=== PATIENT | female | born 1995 | race American Indian/Alaskan Native ===

== ENCOUNTER 2022-02-08 04:47 | Emergency (ER) | payer SELFPAY ==
[2022-02-08] MEDS ORDERED: ONDANSETRON 4 MG ODT TAB PO ONE (10:45)
--- NOTE | 2022-02-08 10:45 | Emergency Department Report ---
Vomiting/Diarrhea - HPI Chief Complaint: Nausea/Vomiting/Diarrhea Stated Complaint: ABD PAIN Duration: 2 Days Severity: moderate Nausea/Vomiting Severity: Mild Diarrhea Severity: Mild Pain Location: Generalized Pain Severity: Mild Symptoms: Yes Watery Diarrhea, Yes Able to Tolerate Fluids, Yes Recent Unusual Foods, No Bloody diarrhea, No Fever, No Recent Untreated Water, No Recent use of Antibiotics, No Family w/ Similar Symptoms, No Contacts w/ Similar Symptoms, No Rash, No Hematuria, No Recent URI Symptoms Other History: This is a 26-year-old -[place] female who presents to the emergency room with nausea, vomiting, and diarrhea for 2 days. Patient states she ate some pizza and did not seek care presents. Patient reports cramping and bloating intensity into the lower abdomen with bowel movements. Patient states she is taken Pepto-Bismol with minimal change in symptoms. Patient states she is able to tolerate fluids and food but it is very uncomfortable to lower abdomen. Denies hematochezia, hemataemesis, weakness, urinary changes, fever, or chills. ED Review of Systems ROS: Stated complaint: ABD PAIN Other details as noted in HPI Constitutional: denies: chills, fever ENT: denies: ear pain, throat pain Respiratory: denies: cough, shortness of breath, wheezing Cardiovascular: denies: chest pain, palpitations Gastrointestinal: abdominal pain, nausea, vomiting, diarrhea. denies: constipation, hematemesis, hematochezia Genitourinary: denies: urgency, dysuria, discharge Neurological: denies: headache, weakness, paresthesias Psychiatric: denies: anxiety, depression ED Past Medical Hx - Medications Home Medications: Home Medications Medication Instructions Recorded Confirmed Last Taken Type Dicyclomine [Bentyl] 10 mg PO QID PRN #12 capsule 02/08/22 Unknown Rx Ondansetron [Zofran Odt] 4 mg PO Q8HR #15 tab.rapdis 02/08/22 Unknown Rx Vomiting Diarrhea Exam - Exam General: Vital signs noted. No distress. Alert and acting appropriately. HEENT: Yes Moist Mucous Membranes, No Pharyngeal Erythema, No Pharyngeal Exudates, No Rhinorrhea, No Conjuctival Injection, No Frontal Tenderness, No Maxillary Tenderness Neck: No Adenopathy, No Rigidity Lungs: Yes Clear Lung Sounds, Yes Good Air Exchange, No Wheezes, No Stridor, No Cough, No Nasal Flaring, No Retractions, No Use of Accessory Muscles Heart exam: Regular: Yes, Murmur: No, Tachycardia: No Abdomen: Tenderness: Yes (RLQ, LLQ), Peritoneal Signs: No, Distention: No, Hyperactive Bowel sounds: No Skin exam: Rash: No, Edema: No, Normal turgor: Yes Neurologic: Alert and oriented, no deficits. Musculoskeletal: Unremarkable. ED Course Vital Signs 02/08/22 05:17 Temperature 98.1 F Pulse Rate 114 H Respiratory 18 Rate Blood Pressure 149/91 O2 Sat by Pulse 97 Oximetry Vital Signs 02/08/22 02/08/22 02/08/22 05:17 14:12 17:42 Temperature 98.1 F Pulse Rate 114 H 68 72 Respiratory 18 18 16 Rate Blood Pressure 149/91 Blood Pressure 135/75 124/68 [Left] O2 Sat by Pulse 97 100 100 Oximetry ED Medical Decision Making - Lab Data Result diagrams: 02/08/22 10:51 02/08/22 10:51 Lab Results 02/08/22 02/08/22 02/08/22 Range/Units 10:51 10:51 10:51 WBC 6.7 (4.5-11.0) K/mm3 RBC 6.61 H (3.65-5.03) M/mm3 Hgb 19.3 H (10.1-14.3) gm/dl Hct 56.6 H* (30.3-42.9) % MCV 86 (79-97) fl MCH 29 (28-32) pg MCHC 34 (30-34) % RDW 15.4 H (13.2-15.2) % Plt Count 239 (140-440) K/mm3 Lymph % (Auto) 12.1 L (13.4-35.0) % Glasscock % (Auto) 5.5 (0.0-7.3) % Eos % (Auto) 0.0 (0.0-4.3) % Baso % (Auto) 0.3 (0.0-1.8) % Lymph # (Auto) 0.8 L (1.2-5.4) K/mm3 Glasscock # (Auto) 0.4 (0.0-0.8) K/mm3 Eos # (Auto) 0.0 (0.0-0.4) K/mm3 Baso # (Auto) 0.0 (0.0-0.1) K/mm3 Seg Neutrophils % 82.1 H (40.0-70.0) % Seg Neutrophils # 5.5 (1.8-7.7) K/mm3 Sodium 134 L (137-145) mmol/L Potassium 4.8 (3.6-5.0) mmol/L Chloride 96.9 L (98-107) mmol/L Carbon Dioxide 25 (22-30) mmol/L Anion Gap 17 mmol/L BUN 21 H (7-17) mg/dL Creatinine 1.5 H (0.6-1.2) mg/dL Estimated GFR 51 ml/min BUN/Creatinine Ratio 14 % Glucose 124 H (65-100) mg/dL Calcium 9.9 (8.4-10.2) mg/dL Total Bilirubin 0.60 (0.1-1.2) mg/dL AST 30 (5-40) units/L ALT 27 (7-56) units/L Alkaline Phosphatase 139 H (35-129) units/L Total Protein 9.2 H (6.3-8.2) g/dL Albumin 5.9 H (3.9-5) g/dL Albumin/Globulin Ratio 1.8 % Lipase 15 (13-60) units/L HCG, Qual (Negative) Urine Color (Yellow) Urine Turbidity (Clear) Specific Neon (Man) (1.003-1.030) Ur Protein (Man) (Negative) mg/dL Ur Ketones (Man) (Negative) Urine Bilirubin (Man) (Negative) Urine WBC (Auto) (0.0-6.0) /HPF Urine RBC (Auto) (0.0-6.0) /HPF U Epithel Cells (Auto) (0-13.0) /HPF Urine RBC (Manual) (Negative) Hyaline Casts /LPF Waxy Casts /LPF Urine Mucus /HPF 02/08/22 02/08/22 Range/Units 14:33 Unknown WBC (4.5-11.0) K/mm3 RBC (3.65-5.03) M/mm3 Hgb (10.1-14.3) gm/dl Hct (30.3-42.9) % MCV (79-97) fl MCH (28-32) pg MCHC (30-34) % RDW (13.2-15.2) % Plt Count (140-440) K/mm3 Lymph % (Auto) (13.4-35.0) % Glasscock % (Auto) (0.0-7.3) % Eos % (Auto) (0.0-4.3) % Baso % (Auto) (0.0-1.8) % Lymph # (Auto) (1.2-5.4) K/mm3 Glasscock # (Auto) (0.0-0.8) K/mm3 Eos # (Auto) (0.0-0.4) K/mm3 Baso # (Auto) (0.0-0.1) K/mm3 Seg Neutrophils % (40.0-70.0) % Seg Neutrophils # (1.8-7.7) K/mm3 Sodium (137-145) mmol/L Potassium (3.6-5.0) mmol/L Chloride (98-107) mmol/L Carbon Dioxide (22-30) mmol/L Anion Gap mmol/L BUN (7-17) mg/dL Creatinine (0.6-1.2) mg/dL Estimated GFR ml/min BUN/Creatinine Ratio % Glucose (65-100) mg/dL Calcium (8.4-10.2) mg/dL Total Bilirubin (0.1-1.2) mg/dL AST (5-40) units/L ALT (7-56) units/L Alkaline Phosphatase (35-129) units/L Total Protein (6.3-8.2) g/dL Albumin (3.9-5) g/dL Albumin/Globulin Ratio % Lipase (13-60) units/L HCG, Qual Negative (Negative) Urine Color Yellow (Yellow) Urine Turbidity Clear (Clear) Specific Neon (Man) 1.030 (1.003-1.030) Ur Protein (Man) Negative (Negative) mg/dL Ur Ketones (Man) Negative (Negative) Urine Bilirubin (Man) Negative (Negative) Urine WBC (Auto) 4.0 (0.0-6.0) /HPF Urine RBC (Auto) 8.0 (0.0-6.0) /HPF U Epithel Cells (Auto) 12.0 (0-13.0) /HPF Urine RBC (Manual) Negative (Negative) Hyaline Casts 271 /LPF Waxy Casts 8 /LPF Urine Mucus 1+ /HPF - Radiology Data Radiology results: report reviewed [facility] [address] [place] [id number] Cat Scan Report Signed Patient: CARLOS HANNA MR#: [id number] : 1995 Acct:[id number] Age/Sex: 26 / F ADM Date: 02/08/22 Loc: ED Attending Dr: Ordering Physician: THOM AVILEZ Date of Service: 02/08/22 Procedure(s): CT abdomen pelvis w con Accession Number(s): [id number] cc: THOM AVILEZ CT abdomen pelvis w con INDICATION: RT lower quadrant tend 100ml of [id number] . COMPARISON: None TECHNIQUE: Abdominal and pelvic CT exam performed. All CT scans at this locati on are performed using CT dose reduction for ALARA by means of automated exposure control. FINDINGS: CT ABDOMEN and PELVIS: Lung Bases: No significant abnormality. Liver: No significant abnormality. Biliary: No significant abnormality. Spleen: No significant abnormality. Pancreas: No significant abnormality. Adrenals: No significant abnormality. Kidneys: No significant abnormality. Lymphatics: Mildly prominent mesenteric lymph nodes, most likely reactive. Vasculature: No significant abnormality. Bowel: There is mild small bowel wall thickening. Dilation of the main arterioles. There is mucosal hyperemia seen and the bowel which involves the terminal ileum. Normal appendix. Pelvis: No significant abnormality. Osseous Structures: No aggressive osseous lesion. Additional Findings: None IMPRESSION: 1. Findings of possible enteritis. Mucosal hyperemia seen within the terminal ileum which is nonspecific but Crohn's could be a consideration. Correlate clinically. . Signer Name: Kolton Farmer MD Signed: 02/08/2022 4:58 PM Workstation Name: [id number] Transcribed By: CS Dictated By: Kolton Farmer MD Electronically Authenticated By: Kolton Farmer MD Signed Date/Time: 02/08/221657 DD/ 53 TD/TT: - Medical Decision Making 26-year-old female patient presents with diffuse abdominal cramping, nausea, vomiting & diarrhea. Differential diagnoses includes possible acute gastroenteritis. Abdominal exam without peritoneal signs. Currently vomiting with evidence of dehydration. No evidence of surgical abdomen or other acute medical emergency including bowel obstruction, viscus perforation, vascular catastrophe, atypical appendicitis, acute cholecystitis at this time. Presentation not consistent with other acute, emergent causes of vomiting / diarrhea at this time. RLQ & LLQ tender on exam. Labs ordered consistent with dehydration. Cupportive care, IV rehydration 1L bolus IV, reassess. PO trial tolerated after [address] findings of possible enteritis. Mucosal hyperemia seen within the terminal ileum which is nonspecific but Crohn's could be a consideration. Start Zofran and Bentyl. Referral to senior officer for continued care. Referral to PCP for follow-up in 2 to 3 days. Given strict return instructions. Patient discharged home stable. Critical care attestation.: If time is entered above; I have spent that time in minutes in the direct care of this critically ill patient, excluding procedure time. ED Disposition Clinical Impression: Food poisoning, Dehydration, Nausea, vomiting, and diarrhea, Enteritis Disposition: 01 HOME / SELF CARE / HOMELESS Is pt being admited?: No Condition: Stable Instructions: Dehydration, Adult, [id number], Food Poisoning and Traveling Prescriptions: Dicyclomine [Bentyl] 10 mg PO QID PRN #12 capsule PRN Reason: Spasms Ondansetron [Zofran Odt] 4 mg PO Q8HR #15 tab.rapdis Referrals: ABBEY SAWANT MD [Primary Care Provider] - 3-5 Days [facility] [Provider Group] - 3-5 Days Time of Disposition: 17:23
[2022-02-08 11:07] LABS: Basophils % (Auto) 0.3 % (0.0-1.8); Hemoglobin 19.3 gm/dl (10.1-14.3); Lymphocytes # (Auto) 0.8 K/mm3 (1.2-5.4); Lymphocytes % (Auto) 12.1 % (13.4-35.0); Mean Corpuscular HGB Conc 34 % (30-34); Mean Corpuscular Volume 86 fl (79-97); Monocytes # (Auto) 0.4 K/mm3 (0.0-0.8); Monocytes % (Auto) 5.5 % (0.0-7.3); Platelet Count 239 K/mm3 (140-440); Red Blood Count 6.61 M/mm3 (3.65-5.03); Red Cell Distribution Width 15.4 % (13.2-15.2)
[2022-02-08 11:26] LABS: Albumin 5.9 g/dL (3.9-5); Calcium 9.9 mg/dL (8.4-10.2)
[2022-02-08] MEDS ORDERED: SODIUM CHLORIDE 0.9% 1000 ML 1,000 ML IV ONE (12:06)
[2022-02-08 13:11] LABS: Hematocrit 56.6 % (30.3-42.9)
[2022-02-08 15:12] LABS: Hyaline Casts,Urine 271 /LPF; Mucus,Urine 1+ /HPF
[2022-02-08 15:24] LABS: Color,Urine Yellow (Yellow)
--- NOTE | 2022-02-08 17:02 | Cat Scan Report ---
CT abdomen pelvis w con INDICATION: RT lower quadrant tend 100ml of [id number] . COMPARISON: None TECHNIQUE: Abdominal and pelvic CT exam performed. All CT scans at this location are performed using CT dose reduction for ALARA by means of automated exposure control. FINDINGS: CT ABDOMEN and PELVIS: Lung Bases: No significant abnormality. Liver: No significant abnormality. Biliary: No significant abnormality. Spleen: No significant abnormality. Pancreas: No significant abnormality. Adrenals: No significant abnormality. Kidneys: No significant abnormality. Lymphatics: Mildly prominent mesenteric lymph nodes, most likely reactive. Vasculature: No significant abnormality. Bowel: There is mild small bowel wall thickening. Dilation of the main arterioles. There is mucosal h yperemia seen and the bowel which involves the terminal ileum. Normal appendix. Pelvis: No significant abnormality. Osseous Structures: No aggressive osseous lesion. Additional Findings: None IMPRESSION: 1. Findings of possible enteritis. Mucosal hyperemia seen within the terminal ileum which is nonspeci fic but Crohn's could be a consideration. Correlate clinically. . Signer Name: Kolton Farmer MD Signed: 02/08/2022 4:58 PM Workstation Name: [id number]
[2022-02-08 17:44] VITALS: BP 124/68
== END 2022-02-08 17:42 | disposition home or self-care (01) ==
LOC: ED 04:47
DX: K52.9 Noninfective gastroenteritis and colitis, unspecified (principal); A05.9 Bacterial foodborne intoxication, unspecified; E86.0 Dehydration; R11.2 Nausea with vomiting, unspecified
CPT/HCPCS: 36415; 74177; 80053; 81001; 83690; 84703; 85025; 96360; 99284; J7030; Q9967; J3490; Q0162